=== PATIENT | female | born 1940 | race Caucasian/White ===

== ENCOUNTER 2017-10-05 10:18 | Emergency (ER) | payer MEDICARE ==
[2017-10-05] MEDS ORDERED: Morphine 4 MG/ML VIAL ONE ×2 (11:24→13:01)
[2017-10-05] MEDS ORDERED: Ondansetron HCl/PF 4 MG/2 ML Vial ONE (11:24)
[2017-10-05 11:59] LABS: #Lymphocytes 0.4 thou/uL (1.20-3.40); #Monocytes 0.5 thou/uL (0.11-0.59); #Neutrophils 12.6 thou/uL (1.40-6.50); %Basophils 0.2 % (0.0-1.0); %Eosinophils 0.1 % (0.0-10.0); %Lymphocytes 3.3 % (21.0-51.0); %Monocytes 3.4 % (0.0-10.0); Hematocrit 40.5 % (36.0-47.0); Mean Platelet Volume 6.9 fL (7.4-10.4); Red Blood Cell (RBC) Count 4.37 mill/uL (4.20-5.40); White Blood Cell (WBC) Count 13.5 thou/uL (4.8-10.8)
[2017-10-05 12:08] LABS: Prothrombin Time 27.1 SEC (12.0-14.7)
[2017-10-05 12:17] LABS: Lactic Acid - Sepsis 2.1 mmol/L (0.5-2.2)
[2017-10-05 12:23] LABS: ALT (SGPT) 23 U/L (8-55); AST (SGOT) 23 U/L (5-34); Alkaline Phosphatase 60 U/L (40-150); Anion Gap 16 mmol/L (10-20); BUN (Urea Nitrogen) 15 mg/dL (9.8-20.1); Bilirubin, Total 0.5 mg/dL (0.2-1.2); Calc. Creatinine Clearance 0 mL/min (70-130); Calcium 9.6 mg/dL (7.8-10.44); Carbon Dioxide 23 mmol/L (23-31); Chloride 101 mmol/L (98-107); Estimated GFR-MDRD 71; Globulin 3.6 g/dL (2.4-3.5); Protein, Total 7.4 g/dL (6.0-8.3)
--- NOTE | 2017-10-05 12:34 | RAD ---
RIGHT KNEE 4 VIEW: Date: 10/05/17 HISTORY: Pain. COMPARISON: None. FINDINGS: There are tricompartmental osteophytes. Large joint effusion. Although this is not a standing radiograph, there is likely narrowing of the medial compartment. No displaced fracture. IMPRESSION: 1. Moderate tricompartmental degenerative changes with likely narrowing of the medial compartment. 2. Large joint effusion, may be reactive from degenerative change. POS: [facility]
--- NOTE | 2017-10-05 12:35 | RAD ---
CHEST 1 VIEW: Date: 10/05/17 HISTORY: Cough. COMPARISON: Chest radiograph dated 02/10/16. FINDINGS: Heart size is enlarged. Mild pulmonary venous congestion. No pneumothorax. Numerous median sternotomy wires. No acute osseous abnormality. IMPRESSION: Cardiomegaly and mild pulmonary venous congestion. POS: [facility]
[2017-10-05 13:59] LABS: Bilirubin Negative (Negative); Blood, Urine Trace (Negative); Glucose, Urine (Dipstick) Negative (Negative); Ketone, Urine Negative (Negative); Nitrite Negative (Negative); Protein, Urine (Dipstick) Trace mg/dL (Neg-Trace); Urobilinogen 0.2 mg/dL (0.2-1.0)
[2017-10-05 14:02] LABS: Bacteria/HPF None Seen HPF (None Seen); Hyaline Casts/LPF 0-3 HYALINE CAST LPF (0-3 Hyaline); RBC/HPF 0-3 HPF (0-3); Squamous Epithelial None Seen HPF (0-3); WBC/HPF None Seen HPF (0-3)
== END 2017-10-05 15:18 | disposition home or self-care (01) ==
LOC: ERS 10:18
DX: M25.061 Hemarthrosis, right knee (principal); R50.9 Fever, unspecified; I48.91 Unspecified atrial fibrillation; I10 Essential (primary) hypertension; E11.9 Type 2 diabetes mellitus without complications; J44.9 Chronic obstructive pulmonary disease, unspecified; E78.00 Pure hypercholesterolemia, unspecified; Z87.891 Personal history of nicotine dependence
CPT/HCPCS: 36415; 51701; 71010; 80053; 81003; 81015; 83605; 85025; 85610; 85652; 85730; 86140; 87040; 96361; 96374; 96375; 96376; J2270; J2405